=== PATIENT | female | born 1980 | race African-American/Black ===

== ENCOUNTER 2017-02-02 14:22 | Emergency (ER) | payer MEDICARE, OTHER ==
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
[2017-02-02] MEDS ORDERED: Ketorolac Tromethamine 60 MG/2 ML VIAL ONE (16:12)
== END 2017-02-02 18:32 | disposition home or self-care (01) ==
LOC: ERS 14:22
DX: M25.532 Pain in left wrist (principal); R07.89 Other chest pain; M25.511 Pain in right shoulder; I10 Essential (primary) hypertension; E66.9 Obesity, unspecified; F32.9 Major depressive disorder, single episode, unspecified; H40.9 Unspecified glaucoma; Z79.899 Other long term (current) drug therapy; V43.62XA Car passenger injured in collision with other type car in traffic accident, initial encounter
CPT/HCPCS: 29125; 71020; 81025; 96372; J1885

== ENCOUNTER 2017-02-07 14:31 | Outpatient (CLI) | payer MEDICARE, OTHER | END 2017-02-07 14:32 | disposition home or self-care (01) | LOC: BICRAD 14:31 | PROVIDERS: ATTEND Nurse Practitioner Family | DX: M25.532 Pain in left wrist (principal); M79.632 Pain in left forearm ==

== ENCOUNTER 2017-03-01 22:16 | Emergency (ER) | payer MEDICARE, OTHER | END 2017-03-01 23:50 | disposition home or self-care (01) | LOC: ERS 22:16 | DX: J02.9 Acute pharyngitis, unspecified (principal); F32.9 Major depressive disorder, single episode, unspecified; I10 Essential (primary) hypertension | CPT/HCPCS: 87081; 87430; 99283 ==

== ENCOUNTER 2017-04-25 09:04 | Emergency (ER) | payer MEDICARE, MEDICAID ==
[2017-04-25] MEDS ORDERED: Ketorolac Tromethamine 60 MG/2 ML VIAL ONE (09:30)
== END 2017-04-25 10:08 | disposition home or self-care (01) ==
LOC: ERS 09:04
DX: K02.9 Dental caries, unspecified (principal); E66.9 Obesity, unspecified; F32.9 Major depressive disorder, single episode, unspecified; I10 Essential (primary) hypertension; Z79.899 Other long term (current) drug therapy; Z79.1 Long term (current) use of non-steroidal anti-inflammatories (NSAID)
CPT/HCPCS: 96372; J1885

== ENCOUNTER 2017-09-03 09:29 | Emergency (ER) | payer MEDICARE, MEDICAID ==
[2017-09-03 10:01] LABS: Bilirubin Negative (Negative); Blood, Urine Negative (Negative); Clarity CLEAR (Clear); Glucose, Urine (Dipstick) Negative (Negative); Leukocyte Small (Negative); Nitrite Negative (Negative); Protein, Urine (Dipstick) Negative (Neg-Trace); Specific Gravity, Urine 1.023 (1.002-1.036); Urobilinogen 0.2 mg/dL (0.2-1.0); pH, Urine 5.5 (5.0-9.0)
[2017-09-03 10:02] LABS: Pregnancy Test - Urine (BHCG) Negative (Negative); Pregu Control Background? CLEAR/WHITE (CLR/WHITE); Pregu Control Bar Appear? YES (CONTROL BAR); Specific Gravity 1.023 (1.002-1.036)
[2017-09-03 10:07] LABS: Bacteria/HPF None Seen HPF (None Seen); Hyaline Casts/LPF 0-3 HYALINE CAST LPF (0-3 Hyaline); Pathc Cast-AUWi Flag 0.14 (0-2.49); Squamous Epithelial 0-3 HPF (0-3)
[2017-09-03 10:10] LABS: RBC/HPF None Seen HPF (0-3)
== END 2017-09-03 12:08 | disposition home or self-care (01) ==
LOC: ERS 09:29
DX: N39.0 Urinary tract infection, site not specified (principal); I10 Essential (primary) hypertension; E66.9 Obesity, unspecified; F32.9 Major depressive disorder, single episode, unspecified; Z79.899 Other long term (current) drug therapy
CPT/HCPCS: 81003; 81015; 81025; 87086; 99283

== ENCOUNTER 2017-10-18 15:52 | Emergency (ER) | payer MEDICARE, MEDICAID ==
[2017-10-18] MEDS ORDERED: hydrOXYzine 25 MG TAB ONE ×2 (16:37→16:40)
[2017-10-18] MEDS ORDERED: predniSONE 20 MG TAB ONE ×2 (16:37→16:40)
== END 2017-10-18 16:43 | disposition home or self-care (01) ==
LOC: ERS 15:52
DX: L23.2 Allergic contact dermatitis due to cosmetics (principal); I10 Essential (primary) hypertension; F32.9 Major depressive disorder, single episode, unspecified; E66.9 Obesity, unspecified; Z79.899 Other long term (current) drug therapy
CPT/HCPCS: 99282; J7506

== ENCOUNTER 2017-11-15 14:15 | Emergency (ER) | payer MEDICARE, OTHER | END 2017-11-15 16:00 | disposition home or self-care (01) | LOC: ERS 14:15 | DX: L25.9 Unspecified contact dermatitis, unspecified cause (principal); I10 Essential (primary) hypertension; E66.9 Obesity, unspecified; F32.9 Major depressive disorder, single episode, unspecified; Z79.899 Other long term (current) drug therapy | CPT/HCPCS: 99282 ==

== ENCOUNTER 2018-01-09 17:46 | Emergency (ER) | payer MEDICARE, OTHER | END 2018-01-09 18:24 | disposition home or self-care (01) | LOC: ERS 17:46 | DX: B86 Scabies (principal); I10 Essential (primary) hypertension; E66.9 Obesity, unspecified; F32.9 Major depressive disorder, single episode, unspecified; Z79.899 Other long term (current) drug therapy | CPT/HCPCS: 99282 ==

== ENCOUNTER 2018-02-27 11:12 | Emergency (ER) | payer MEDICARE, OTHER | END 2018-02-27 12:07 | disposition home or self-care (01) | LOC: ERS 11:12 | DX: J06.9 Acute upper respiratory infection, unspecified (principal); I10 Essential (primary) hypertension; E66.9 Obesity, unspecified; Z79.899 Other long term (current) drug therapy | CPT/HCPCS: 87804; 99283 ==

== ENCOUNTER 2018-04-12 22:13 | Emergency (ER) | payer MEDICARE, OTHER ==
[2018-04-13] MEDS ORDERED: Dexamethasone 4 MG TAB ONE (00:02)
== END 2018-04-13 00:11 | disposition home or self-care (01) ==
LOC: ERS 22:13
DX: B34.9 Viral infection, unspecified (principal); I10 Essential (primary) hypertension; E66.9 Obesity, unspecified; Z79.899 Other long term (current) drug therapy
CPT/HCPCS: 87081; 87430; 87804; 99283; J8540

== ENCOUNTER 2018-10-04 22:28 | Emergency (ER) | payer MEDICARE, MEDICAID ==
[2018-10-04] MEDS ORDERED: Ketorolac Tromethamine 60 MG/2 ML VIAL ONE (23:19)
== END 2018-10-04 23:40 | disposition home or self-care (01) ==
LOC: ERS 22:28
DX: S39.012A Strain of muscle, fascia and tendon of lower back, initial encounter (principal); I10 Essential (primary) hypertension; E66.9 Obesity, unspecified; Z79.891 Long term (current) use of opiate analgesic; Z79.1 Long term (current) use of non-steroidal anti-inflammatories (NSAID); Z79.899 Other long term (current) drug therapy; X50.1XXA Overexertion from prolonged static or awkward postures, initial encounter
CPT/HCPCS: 96372; 99283; J1885

== ENCOUNTER 2019-01-31 11:00 | Outpatient (CLI) | payer MEDICARE, MEDICAID | END 2019-01-31 11:01 | disposition home or self-care (01) | PROVIDERS: ATTEND Nurse Practitioner Family | DX: M54.9 Dorsalgia, unspecified (principal); M25.569 Pain in unspecified knee ==

== ENCOUNTER 2019-04-02 16:20 | Emergency (ER) | payer MEDICARE, MEDICAID ==
[~2019-04-02 16:20] MED LIST: Iopamidol-370 76% 500 ML 1 ML ONE
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
[2019-04-02 17:10] LABS: Hemoglobin 14.7 g/dL (12.0-16.0); Mean Corpuscular HGB CONC 31.5 g/dL (32.0-36.0); Mean Corpuscular Hemoglobin 27.5 pg (27.0-31.0); Mean Corpuscular Volume 87.1 fL (78.0-98.0); Mean Platelet Volume 8.6 fL (7.4-10.4); Platelet Count 293 thou/uL (130-400); RBC Distribution Width 12.3 % (11.5-14.5); Red Blood Cell (RBC) Count 5.37 mill/uL (4.20-5.40); White Blood Cell (WBC) Count 4.8 thou/uL (4.8-10.8)
[2019-04-02 17:34] LABS: Band 2 % (5-11); Hypochromia SLIGHT = 6-15 cells (100X) (0-5/hpf); Lymphocytes 46 % (21-51); MDiff Complete? YES; Monocytes 3 % (0-10); Neutrophil 41 % (42-75); Platelet Morphology Comment Appears Adequate; Reactive Lymphocytes 6 % (0-10)
[2019-04-02 17:37] LABS: ALT (SGPT) 22 U/L (8-55); AST (SGOT) 19 U/L (5-34); Albumin 4.5 g/dL (3.5-5.0); Alkaline Phosphatase 65 U/L (40-110); Anion Gap 15 mmol/L (10-20); BUN (Urea Nitrogen) 13 mg/dL (7.0-18.7); Bilirubin, Total 0.7 mg/dL (0.2-1.2); CK (CPK) 257 U/L (29-168); Calc. Creatinine Clearance 0 mL/min (70-130); Calcium 9.7 mg/dL (7.8-10.44); Carbon Dioxide 21 mmol/L (22-29); Chloride 110 mmol/L (98-107); Estimated GFR-MDRD 68; Globulin 3.7 g/dL (2.4-3.5); Glucose 113 mg/dL (70-105); Potassium 3.9 mmol/L (3.5-5.1); Protein, Total 8.2 g/dL (6.0-8.3); Sodium 142 mmol/L (136-145)
[2019-04-02] MEDS ORDERED: Nitroglycerin 0.4 MG TAB 1 EACH ONE (19:30)
[2019-04-02] MEDS ORDERED: Aspirin Chewable 81 MG TAB ONE (19:30)
[2019-04-02 19:47] LABS: BHCG - Serum Negative (NEGATIVE); Pregs Control Background? CLEAR/WHITE (CLR/WHITE); Pregs Control Bar Appear? YES (CONTROL BAR)
--- NOTE | 2019-04-02 20:38 | CT ---
CTA Angio Chest W WO Con History: Chest pain Comparison: Chest radiograph same day Findings: CT angiogram chest performed after the intravenous ministration of contrast. 3-D rendering provided. No proximal segmental pulmonary arterial filling defect. The aortic contour is normal. No mediastinal adenopathy. No pericardial effusion. Limited evaluation of the upper abdomen is unremarkable. Thoracic spine is intact. Sternum and manubrium are intact. 4 mm nodule medial right middle lobe. No suspicious pulmonary nodule is present. Clavicles are intact. No acute displaced rib fracture. Impression: 1. No pulmonary embolism. 2. No acute intrathoracic abnormality.
== END 2019-04-02 23:08 | disposition home or self-care (01) ==
LOC: ERS 16:20
DX: R07.89 Other chest pain (principal); I10 Essential (primary) hypertension; E66.9 Obesity, unspecified; F41.0 Panic disorder [episodic paroxysmal anxiety]; Z79.899 Other long term (current) drug therapy
CPT/HCPCS: 36415; 71046; 71275; 80053; 82550; 84484; 84703; 85025; 85379; 93005; 96360; 96361; Q9967

== ENCOUNTER 2019-04-11 14:56 | Outpatient (CLI) | payer OTHER ==
--- NOTE | 2019-04-11 15:29 | RAD ---
LUMBAR SPINE SERIES TWO VIEWS: 04/11/19 HISTORY: Disability examination. COMPARISON: 10/03/14 study. Vertebral bodies are normal in height. Minimal spondylolisthesis of L4 on L5 is now present, approxim ately 4 to 5 mm. There is marked degenerative disc narrowing at L5-S1. 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 POS: [facility]
== END 2019-04-11 14:57 | disposition home or self-care (01) ==
LOC: BICRAD 14:56
PROVIDERS: ATTEND Internal Medicine
DX: Z02.71 Encounter for disability determination (principal); M46.96 Unspecified inflammatory spondylopathy, lumbar region
CPT/HCPCS: 36415; 72100; 85018; 85048; 86361

== ENCOUNTER 2020-01-09 13:04 | Outpatient (CLI) | payer OTHER ==
--- NOTE | 2020-01-09 13:40 | MMO ---
Bilateral MAMMO Bilat Diag [facility]. CLINICAL HISTORY: Patient is 39 years old and is seen for diagnostic exam. The patient has the following family history of breast cancer: maternal aunt, at age 45. The patient has no personal history of cancer. VIEWS: The views performed were: bilateral craniocaudal with tomosynthesis; bilateral mediolateral oblique with tomosynthesis; and bilateral mediolateral with tomosynthesis. FILMS COMPARED: The present examination has been compared to a prior imaging study performed at [facility] on 05/24/2010. This study has been interpreted with the assistance of computer-aided detection. MAMMOGRAM FINDINGS: There are scattered fibroglandular densities. Mutiple oil cysts are seen in the right breast including the 3 palpable abnormalities in the upper breast. Benign calcifications are noted bilaterally. There are no suspicious masses, suspicious calcifications, or new areas of architectural distortion. IMPRESSION: THERE IS NO MAMMOGRAPHIC EVIDENCE OF MALIGNANCY. A ROUTINE FOLLOW-UP MAMMOGRAM IN 1 YEAR IS RECOMMENDED. THE RESULTS OF THIS EXAM WERE SENT TO THE PATIENT. ACR BI-RADS Category 2 - Benign finding MAMMOGRAPHY NOTE: 1. A negative mammogram report should not delay a biopsy if a dominant of clinically suspicious mass is present. 2. Approximately 10% to 15% of breast cancers are not detected by mammography. 3. Adenosis and dense breasts may obscure an underlying neoplasm. Reported by: MARTINA VARGHESE MD Electonically Signed: [id number]
== END 2020-01-09 13:05 | disposition home or self-care (01) ==
LOC: BICMAMMO 13:04
PROVIDERS: ATTEND Specialist
DX: N63.10 Unspecified lump in the right breast, unspecified quadrant (principal)
CPT/HCPCS: 77066; G0279

== ENCOUNTER 2020-06-14 10:30 | Emergency (ER) | payer OTHER ==
[2020-06-14 11:21] LABS: #Lymphocytes 1.7 thou/uL (1.20-3.40); #Monocytes 0.2 thou/uL (0.11-0.59); #Neutrophils 2.7 thou/uL (1.40-6.50); %Basophils 0.5 % (0.0-1.0); %Eosinophils 0.8 % (0.0-10.0); %Lymphocytes 35.8 % (21.0-51.0); %Monocytes 4.5 % (0.0-10.0); %Neutrophils 58.3 % (42.0-75.0); Hemoglobin 14.5 g/dL (12.0-16.0); Mean Corpuscular HGB CONC 33.1 g/dL (32.0-36.0); Mean Corpuscular Volume 93.6 fL (78.0-98.0); Mean Platelet Volume 8.1 fL (7.4-10.4); Platelet Count 282 thou/uL (130-400); RBC Distribution Width 12.1 % (11.5-14.5); Red Blood Cell (RBC) Count 4.67 mill/uL (4.20-5.40); White Blood Cell (WBC) Count 4.7 thou/uL (4.8-10.8)
[2020-06-14 11:35] LABS: ALT (SGPT) 22 U/L (8-55); AST (SGOT) 21 U/L (5-34); Albumin 4.1 g/dL (3.5-5.0); Alkaline Phosphatase 76 U/L (40-110); Anion Gap 12 mmol/L (10-20); BUN (Urea Nitrogen) 9 mg/dL (7.0-18.7); Bilirubin, Total 0.6 mg/dL (0.2-1.2); Calc. Creatinine Clearance 0 mL/min (70-130); Calcium 9.8 mg/dL (7.8-10.44); Carbon Dioxide 25 mmol/L (22-29); Chloride 105 mmol/L (98-107); Globulin 3.6 g/dL (2.4-3.5); Glucose 93 mg/dL (70-105); Potassium 4.2 mmol/L (3.5-5.1); Protein, Total 7.7 g/dL (6.0-8.3); Sodium 138 mmol/L (136-145)
[2020-06-14] MEDS ORDERED: Ketorolac Tromethamine 30 MG/ML VIAL ONE (11:52)
[2020-06-14] MEDS ORDERED: Metoclopramide HCl 10 MG/2 ML VIAL ONE (11:52)
[2020-06-14] MEDS ORDERED: diphenhydrAMINE 50 MG/ML VIAL ONE (11:52)
[2020-06-14] MEDS ORDERED: Acetaminophen 500 MG TAB ONE (11:52)
[2020-06-14 11:59] LABS: BHCG - Serum Negative (NEGATIVE); Pregs Control Background? CLEAR/WHITE (CLR/WHITE); Pregs Control Bar Appear? YES (CONTROL BAR)
[2020-06-14] MEDS ORDERED: Iopamidol-370 76% 500 ML 1 ML ONE (12:50)
[2020-06-14 13:27] LABS: Troponin I 0.016 ng/mL (< 0.028)
== END 2020-06-14 14:26 | disposition home or self-care (01) ==
LOC: ERS 10:30
DX: R07.89 Other chest pain (principal); R51.9 Headache, unspecified; Z20.822 Contact with and (suspected) exposure to COVID-19; I10 Essential (primary) hypertension; E66.9 Obesity, unspecified; Z79.899 Other long term (current) drug therapy
CPT/HCPCS: 36415; 71045; 71275; 80053; 84484; 84703; 85025; 85379; 93005; 96365; 96375; J1200; J1885; J2765; Q9967

== ENCOUNTER 2020-11-17 14:36 | Outpatient (CLI) | payer OTHER | END 2020-11-17 14:37 | disposition home or self-care (01) | LOC: BICRAD 14:36 | PROVIDERS: ATTEND Nurse Practitioner Family | DX: M54.5 Low back pain (principal); M25.569 Pain in unspecified knee; M25.551 Pain in right hip; M47.816 Spondylosis without myelopathy or radiculopathy, lumbar region | CPT/HCPCS: 72100; 72202 ==

== ENCOUNTER 2021-03-15 13:22 | Emergency (ER) | payer OTHER ==
[2021-03-15 21:35] LABS: SARS-CoV-2 PCR by NAA DETECTED (NotDetected)
== END 2021-03-15 14:45 | disposition home or self-care (01) ==
LOC: ERS 13:22
DX: U07.1 COVID-19 (principal); I10 Essential (primary) hypertension; E66.9 Obesity, unspecified; Z79.899 Other long term (current) drug therapy
CPT/HCPCS: 99284; U0003; U0005

== ENCOUNTER 2022-10-10 08:22 | Emergency (ER) | payer OTHER | END 2022-10-10 08:48 | disposition home or self-care (01) | LOC: ERS 08:22 | DX: L02.811 Cutaneous abscess of head [any part, except face] (principal); I10 Essential (primary) hypertension; Z79.899 Other long term (current) drug therapy | CPT/HCPCS: 99282 ==

== ENCOUNTER 2022-11-13 00:48 | Emergency (ER) | payer OTHER ==
[2022-11-13 01:16] LABS: Bacteria/HPF None Seen HPF (None Seen); Bilirubin Negative (Negative); Blood, Urine Negative (Negative); CAUTI Indications for Culture < 2yrs of age; Clarity Turbid (Clear); Glucose, Urine (Dipstick) Normal (Negative); Ketone, Urine Negative (Negative); Leukocyte 500 Leu/uL (Negative); Nitrite Negative (Negative); Protein, Urine (Dipstick) 30 mg/dL (Neg-Trace); Specific Gravity, Urine 1.033 (1.002-1.036); Squamous Epithelial 21-50 HPF (0-3); WBC/HPF 21-50 HPF (0-3)
[2022-11-13 01:18] LABS: Urine Culture Reflex Yes Yes
[2022-11-13] MEDS ORDERED: Ketorolac Tromethamine 30 MG/ML VIAL ONE (03:13)
[2022-11-13] MEDS ORDERED: Dexameth. Sod Phosp. 10 MG/ML (CHEMO USE ONLY) ONE (03:13)
[2022-11-13] MEDS ORDERED: Acetaminophen 500 MG TAB ONE (03:44)
== END 2022-11-13 03:45 | disposition home or self-care (01) ==
LOC: ERS 00:48
DX: J02.9 Acute pharyngitis, unspecified (principal); I10 Essential (primary) hypertension; E66.9 Obesity, unspecified
CPT/HCPCS: 81001; 87086; 87430; 96372; 99283; J1100; J1885

== ENCOUNTER 2023-07-26 05:37 | Emergency (ER) | payer OTHER ==
[2023-07-26 06:52] LABS: #Basophils Less than 0.03 10x3/uL (0.0-0.2); #Eosinphils Less than 0.03 10x3/uL (0.0-0.7); %Basophils 0.3 % (0.0-1.0); %Eosinophils 0.2 % (0.0-10.0); %Lymphocytes 28.2 % (21.0-51.0); %Monocytes 6.3 % (0.0-10.0); %Neutrophils 64.8 % (42.0-75.0); Hematocrit 39.6 % (36.0-47.0); Hemoglobin 13.4 g/dL (12.0-16.0); Mean Corpuscular HGB CONC 33.8 g/dL (32.0-36.0); Mean Corpuscular Hemoglobin 29.9 pg (27.0-31.0); Mean Corpuscular Volume 88.4 fL (78.0-98.0); Mean Platelet Volume 10.7 fL (7.4-10.4); Platelet Count 239 10x3/uL (130-400); RBC Distribution Width 12.4 % (11.5-14.5); Red Blood Cell (RBC) Count 4.48 mill/uL (4.20-5.40)
[2023-07-26 07:03] LABS: ALT (SGPT) 17 U/L (8-55); AST (SGOT) 20 U/L (5-34); Albumin 3.8 g/dL (3.5-5.0); Alkaline Phosphatase 65 U/L (40-110); Anion Gap 14 mmol/L (10-20); BUN (Urea Nitrogen) 9 mg/dL (7.0-18.7); Bilirubin, Total 1.1 mg/dL (0.2-1.2); Calc. Creatinine Clearance 0 mL/min (70-130); Calcium 9.6 mg/dL (7.8-10.44); Carbon Dioxide 23 mmol/L (22-29); Chloride 107 mmol/L (98-107); Estimated GFR 61; Globulin 3.7 g/dL (2.4-3.5); Glucose 85 mg/dL (70-105); Potassium 3.7 mmol/L (3.5-5.1); Protein, Total 7.5 g/dL (6.0-8.3); Sodium 140 mmol/L (136-145)
[2023-07-26 07:09] LABS: Troponin I Less than 0.010 ng/mL (< 0.028)
[2023-07-26] MEDS ORDERED: Acetaminophen 500 MG TAB ONE (07:09)
[2023-07-26] MEDS ORDERED: Ketorolac Tromethamine 30 MG (1 mL) VIAL ONE (07:09)
== END 2023-07-26 07:55 | disposition home or self-care (01) ==
LOC: ERS 05:37
DX: J06.9 Acute upper respiratory infection, unspecified (principal); R07.9 Chest pain, unspecified; I10 Essential (primary) hypertension
CPT/HCPCS: 36415; 71045; 80053; 84484; 85025; 93005; 96372; J1885